=== PATIENT | male | born 1950 | race Caucasian/White ===

== ENCOUNTER 2017-06-07 09:05 | Outpatient (CLI) | payer BC ==
--- NOTE | 2017-06-08 00:51 | Ultrasound Preliminary Report ---
Exam: US AORTA SCREENING IMPRESSION: No abdominal aortic aneurysm. [facility] SITE ID: [id number]
--- NOTE | 2017-06-08 01:20 | Ultrasound Report ---
EXAM: AORTIC DOPPLER ULTRASOUND EXAM DATE: 06/07/2017 10:16 AM. CLINICAL HISTORY: Aneurysm screening. COMPARISON: None. TECHNIQUE: Real-time sonographic imaging of retroperitoneal vascular structures, including color-flow , Doppler flow and spectral analysis was performed by the senior health consultant. Multiple traffic representative static images were saved for review. FINDINGS: Aorta: The abdominal aorta was adequately visualized. No evidence for abdominal aortic aneurysm. Mild atherosclerotic changes present. Aorta: Proximal: Sagittal AP: 2.7 cm. Mid: Transverse: 2.2 x 2.1 cm. Distal: Transverse: 2.0 x 2.3 cm. Iliacs: Right Iliac: Transverse plane measurements: 1.4 x 1.2 cm. Left Iliac: Transverse plane measurements: 1.2 x 1.4 cm. Iliac Vessels: The visualized proximal common iliac arteries are normal in caliber. Other: None. IMPRESSION: No abdominal aortic aneurysm. [facility] Referring Provider Line: [phone] SITE ID: [id number]
== END 2017-06-07 09:06 | disposition home or self-care (01) ==
LOC: DI 09:05
PROVIDERS: ATTEND Internal Medicine
DX: Z13.6 Encounter for screening for cardiovascular disorders (principal)
CPT/HCPCS: 76706

== ENCOUNTER 2023-07-22 12:08 | Outpatient (CLI) | payer MEDICARE, OTHER ==
--- NOTE | 2023-07-22 14:47 | XRAY Report ---
PROCEDURE: Chest 2V INDICATIONS: COUGH TECHNIQUE: 2 views of the chest were acquired. COMPARISON: None. FINDINGS: Surgical changes and devices: None. Lungs and pleura: No pleural effusions or pneumothorax. Lungs are clear. Mediastinum: Mediastinal contours appear normal. Heart size is normal. Bones and chest wall: No suspicious bony lesions. Overlying soft tissues appear unremarkable. IMPRESSION: No acute cardiopulmonary process. Reviewed by: Kevin Meng MD on 07/22/2023 2:46 PM PDT Approved by: Kevin Meng MD on 07/22/2023 2:46 PM PDT Station ID: [id number]
== END 2023-07-22 12:09 | disposition home or self-care (01) ==
LOC: DI 12:08
PROVIDERS: ATTEND Internal Medicine
DX: R05.9 Cough, unspecified (principal); R07.9 Chest pain, unspecified